=== PATIENT | female | born 1975 | race Two or more races ===

== ENCOUNTER 2017-06-05 21:02 | Emergency (ER) | payer MEDICAID ==
[~2017-06-05] VITALS: Ht 172.7 cm; Wt 104.3 kg
[2017-06-05 21:27] VITALS: BP 140/73
== END 2017-06-06 02:45 | disposition left against medical advice (07) ==
LOC: ER 21:02
DX: M79.601 Pain in right arm (principal); R51 Headache; Z53.21 Procedure and treatment not carried out due to patient leaving prior to being seen by health care provider
CPT/HCPCS: 70450; 72125; 73060; 73090